=== PATIENT | male | born 1975 | race African-American/Black ===

== ENCOUNTER 2016-09-30 02:42 | Emergency (ER) | payer OTHER ==
[~2016-09-30] VITALS: Ht 185.4 cm; Wt 136.1 kg
[~2016-09-30 02:42] MED LIST: FLEXERIL; FLEXERIL PO; IBUPROFEN 400400 M2; IBUPROFEN 600600 M1 PO; NAPROSYN500 MG PO; NORCO 5-325 TA1 EACH PO; PERCOCET 5-3251 EACH PO
[2016-09-30] MEDS ORDERED: MOBIC15 MG PO (03:53)
[2016-09-30 04:33] VITALS: BP 127/87
== END 2016-09-30 03:56 ==
LOC: ER 02:42
DX: M77.8 Other enthesopathies, not elsewhere classified (principal); R20.0 Anesthesia of skin; R20.2 Paresthesia of skin; F17.210 Nicotine dependence, cigarettes, uncomplicated; F10.99 Alcohol use, unspecified with unspecified alcohol-induced disorder

== ENCOUNTER 2016-10-01 00:44 | Emergency (ER) | payer OTHER ==
[~2016-10-01] VITALS: Ht 185.4 cm; Wt 145.2 kg
--- NOTE | ~2016-10-01 | EKG ---
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 10/01/16 0742 D: 06/51 Terry Osborne MD, FACC /EPI
[~2016-10-01 00:44] MED LIST changes: +MOBIC15 MG PO
[2016-10-01 01:42] LABS: HEMATOCRIT 40.8 % (42.0-52.0); MCH 31.5 pg (26.0-34.0); MCHC 34.3 g/dL (28.0-37.0); RBC 4.43 mil/uL (4.50-6.00); RDW 14.4 % (10.5-14.5); WBC 12.9 thou/uL (4.0-11.0)
[2016-10-01 01:43] LABS: MANUAL DIFF YES
[2016-10-01 01:51] LABS: ANION GAP 12 mmol/L (7-16); BUN 14 mg/dL (7-18); CALCIUM 9.3 mg/dL (8.5-10.1); CHLORIDE 101 mmol/L (98-107); CO2 22 mmol/L (21-32); CREATININE 0.9 mg/dL (0.7-1.3); GLUCOSE 152 mg/dL (74-106); POTASSIUM 4.3 mmol/L (3.5-5.1); SODIUM 135 mmol/L (136-145)
[2016-10-01 01:59] LABS: TROPONIN-I < 0.04 ng/mL (<0.04-0.07)
[2016-10-01 02:26] LABS: LARGE PLATELETS RARE; PLATELET COUNT 179 thou/uL (150-400); TOTAL CELL COUNT 100
[2016-10-01 02:58] VITALS: BP 158/92
== END 2016-10-01 03:00 | disposition home or self-care (01) ==
LOC: ER 00:44
PROVIDERS: Emergency Medicine
DX: R00.2 Palpitations (principal); F10.99 Alcohol use, unspecified with unspecified alcohol-induced disorder; F17.210 Nicotine dependence, cigarettes, uncomplicated

== ENCOUNTER 2016-12-08 01:48 | Observation (INO) | payer OTHER | END 2016-12-08 18:47 | disposition home or self-care (01) | LOC: ER 01:48 → EROBS 03:17 → 2N 04:04 | DX: R07.89 Other chest pain (principal); F10.10 Alcohol abuse, uncomplicated; F19.10 Other psychoactive substance abuse, uncomplicated; Z72.0 Tobacco use; M25.579 Pain in unspecified ankle and joints of unspecified foot; M77.9 Enthesopathy, unspecified; R00.2 Palpitations ==